=== PATIENT | female | born 1950 | race Caucasian/White ===

== ENCOUNTER 2025-02-28 19:50 | Emergency (ER) | payer OTHER, MEDICARE ==
[~2025-02-28] VITALS: Ht 167.6 cm; Wt 77.6 kg
[~2025-02-28 19:50] MED LIST: ATOR10TA70 PO; CALC-995 PO; IPRA4AER IH; LORA1TAB PO; MOME13HF9 IH; MONT-47 PO; MULT-933 PO; RANI-366 PO; RANI150T8 PO; SALM50DI2 IH; SUCR1ORA2 PO; VALS1TAB76 PO; VALS40TA2 PO
[2025-02-28 20:43] LABS: BASOPHILS % (AUTO) 0.4 % (0-1); EOSINOPHILS % (AUTO) 0.3 % (0-6); HEMATOCRIT 39.2 % (35.0-45.0); HEMOGLOBIN 13.3 g/dl (12.0-16.0); LYMPHOCYTES # (AUTO) 2.2 X10'3 (1.1-4.8); MEAN CORPUSCULAR HEMOGLOBIN 29.5 PG (27.0-31.0); MEAN CORPUSCULAR VOLUME 86.6 FL (78-98); MEAN PLATELET VOLUME 8.2 FL (7.4-10.4); MONOCYTES % (AUTO) 10.3 % (2-12); NEUTROPHILS # (AUTO) 6.8 X10'3 (1.8-7.7); PLATELET COUNT 203 X10'3 (140-440); RED BLOOD COUNT 4.52 X10'6 (4.20-5.60); RED CELL DISTRIBUTION WIDTH 13.3 % (11.5-14.5); WHITE BLOOD COUNT 10.1 X10'3 (4.5-11.0)
[2025-02-28 20:51] LABS: ALBUMIN 3.7 G/DL (3.4-5.0); ANION GAP 7 (8-16); BLOOD UREA NITROGEN 14 MG/DL (7-18); BUN/CREATININE RATIO 22.2 (10.0-20.0); CALCIUM 8.9 MG/DL (8.5-10.1); CHLORIDE 106 MMOL/L (99-107); CREATININE 0.63 MG/DL (0.40-0.90); GLUCOSE 113 MG/DL (70-104); POTASSIUM 3.9 MMOL/L (3.5-5.1); SODIUM 141 MMOL/L (135-145); TOTAL CARBON DIOXIDE 28.2 MMOL/L (24-32); eCRCL 73 ML/MIN; eGFR > 90 ML/MIN
[2025-02-28 20:54] LABS: APTT 24 SECONDS (22-32); PROTHROMBIN TIME 10.5 SECONDS (9.0-12.0)
[2025-02-28 21:04] LABS: BILIRUBIN,URINE NEGATIVE (Neg); CLARITY,URINE CLOUDY (Clear); COLOR,URINE YELLOW (Yellow); GLUCOSE, URINE NEGATIVE (Neg); KETONES,URINE NEGATIVE (Neg); LEUKOCYTE ESTERASE ,URINE NEGATIVE (Neg); NITRITES, URINE POSITIVE (Neg); OCCULT BLOOD,URINE NEGATIVE (Neg); PH,URINE 6.5 (4.8-8.0); PROTEIN,URINE NEGATIVE (Neg); UROBILINOGEN,URINE 0.2 E.U/dL (0.2-1.0)
[2025-02-28 21:18] LABS: UA COLLECTION TYPE URINAL
[2025-02-28 21:19] LABS: BACTERIA,URINE 4+ /HPF (Neg); RBC,URINE NONE SEEN /HPF (0-2); SQUAMOUS EPITHELIAL CELL,UR MODERATE /LPF (FEW)
[2025-02-28] MEDS ORDERED: levetiracetam inj 1,000 MG in normal saline 100ml IV soln 100 ML IV ONE (21:50)
[2025-02-28] MEDS: levetiracetam-NACL1000mg/100ml 100 ML IV ONE (22:07)
[2025-02-28] MEDS: labetalol 20mg/4ml (5mg/ml) syringe IV ONE (22:22)
[2025-02-28 22:27] VITALS: BP 152/102; PULSE 96; RESP 16; TEMP 97.8; O2SAT 98
== END 2025-02-28 22:32 | disposition hospice, inpatient (51) ==
LOC: ER 19:51
DX: S06.5XAA Traumatic subdural hemorrhage with loss of consciousness status unknown, initial encounter (principal); E78.00 Pure hypercholesterolemia, unspecified; I10 Essential (primary) hypertension; J45.909 Unspecified asthma, uncomplicated; W19.XXXA Unspecified fall, initial encounter; Z88.0 Allergy status to penicillin; Y93.89 Activity, other specified; Y92.89 Other specified places as the place of occurrence of the external cause; Y99.8 Other external cause status
CPT/HCPCS: 36415; 70450; 80048; 81001; 82948; 84145; 85025; 85610; 85730; 87077; 87088; 87186; 93005; 96374; 96375; 99291; 99292; J1953; J3490; 99285

== ENCOUNTER 2025-05-25 11:10 | Emergency (ER) | payer OTHER, MEDICARE ==
[~2025-05-25] VITALS: Ht 167.6 cm; Wt 77.3 kg
[2025-05-25 11:13] VITALS: TEMP 98.7
--- NOTE | 2025-05-25 11:32 | Physician Documentation ---
History of Present Illness General Stated Complaint: POSS STROKE SYMPTOMS Time Seen by MD: 11:26 Primary Medical Doctor: ZENAIDA History of Present Illness Initial Comments The patient is a 74-year-old female who was diagnosed with normal pressure hydrocephalus in September 2023. She had a shunt placed in July 2024 at [facility]. The shunt has been variously adjusted for drainage and recently set to 6., less drainage, about a month ago. Her treatment team at [facility] advised her that she might develop symptoms. She has been having trouble finding words and has reported slight difficulty or slurring of speech beginning three days ago. She has an appointment at [facility] on the of this month. She found them and they asked her to come to the hospital for a CT scan so they could review it. In February 2024 the patient was noted to have an old subdural hematoma on the left side. It was not clear when she developed it. Medication Reconciliation Allergies: Coded Allergies: Penicillins (Verified Allergy, Severe, RASH, 02/28/25) >5 years ago, rash, required treatment cephalexin (Verified Allergy, Severe, RASH, 05/25/25) ketorolac (Verified Allergy, Severe, exacerbates her asthma, 02/28/25) midazolam (Verified Allergy, Severe, SOB, 02/28/25) lactase (Verified Adverse Reaction, Severe, MIGRAINE MCKEON, 02/28/25) tetracycline (Verified Adverse Reaction, Severe, EMESIS, 02/28/25) Uncoded Allergies: HEPATITIS B VACCINE (Allergy, Severe, anaphylaxis, 05/16/17) Scheduled Atorvastatin Calcium (Atorvastatin Calcium), 1 TAB PO DAILY, (Reported) Calcium Carbonate (Calcium), 1 TAB PO DAILY, (Reported) Mometasone Furoate (Asmanex Hfa), 1-2 PUFFS IH BID, (Reported) Montelukast Sodium (Singulair), 1 TAB PO HS, (Reported) Multivitamin (One Daily Multivitamin), 1 TAB PO DAILY, (Reported) Ranitidine Hcl (Zantac), 150 MG PO DAILY Salmeterol Xinafoate* (Serevent Diskus*), 1 INH IH Q12H, (Reported) Sucralfate (Carafate), 10 ML PO ACHS Valsartan (Diovan), 80 MG PO HS, (Reported) Valsartan/Hydrochlorothiazide (Valsartan-Hctz 160-12.5 Mg Tab), 1 TAB PO QAM, (Reported) Scheduled PRN Ipratropium/Albuterol Sulfate (Combivent Respimat Inhal [place]), 2 PUFFS IH Q4H PRN for SOB or wheezing, (Reported) Lorazepam* (Ativan*), 1 TAB PO Q12H PRN for for anxiety/agitation, (Reported) Ranitidine HCl (Ranitidine HCl), 1 TAB PO DAILY PRN for acid reflux, (Reported) Past Medical History Past Medical History: High Cholesterol, Hypertension, Asthma, Chronic Pain Past Surgical History: noncontributory Alcohol Use: Rarely Drug Use: none Review of Systems ROS Constitutional: Denies chills, fatigue, fever, weight gain or weight loss. HEENT: Denies hearing loss, sinus pressure or visual changes. Respiratory: Denies cough, shortness of breath or wheezing. Cardiovascular: Denies chest pain, pain while walking (claudication), edema or palpitations. Gastrointestinal: Denies abdominal pain, blood in stool, constipation, diarrh ea, heartburn, loss of appetite, nausea or vomiting. Genitourinary: Denies painful urination (dysuria), excessive amount of urine (polyuria) or urinary frequency. Metabolic/Endocrine: Denies cold intolerance, heat intolerance, excessive thirst (polydipsia) or excessive hunger (polyphagia). Neurological: Trouble finding words and subjective slurring Psychiatric: Denies anxiety or depression. Integumentary: Denies breast discharge, breast lump, hives, mole change(s), rash or skin lesion. Musculoskeletal: Denies back pain, joint pain, joint swelling or neck pain. Hematologic: Denies easily bleeding, easily bruises, lymphedema or issues with blood clots. Immunologic: Denies food allergies or seasonal allergies. Physical Exam Physical Exam Physical Exam Physical Exam Vitals and nursing note reviewed. Constitutional: General: Patient is awake, alert, oriented x 4 in no acute distress and well appearing. Speech is clear and lucid. Appearance: Normal appearance. Patient is not ill-appearing, toxic-appearing or diaphoretic. HENT: Head: Normocephalic and atraumatic. Mouth/Throat: Mouth: Mucous membranes are moist. Pharynx: Oropharynx is clear. Eyes: General: No scleral icterus. Extraocular Movements: Extraocular movements intact. Pupils: Pupils are equal, round, and reactive to light. Cardiovascular: Rate and Rhythm: Normal rate and regular rhythm. Heart sounds: No murmur heard. Pulmonary: Effort: No respiratory distress. Breath sounds: No wheezing, rhonchi or rales. Abdominal: General: There is no distension. Palpations: There is no fluid wave, hepatomegaly or mass. Tenderness: There is no abdominal tenderness. There is no guarding. Musculoskeletal: General: No swelling or deformity. Skin: Coloration: Skin is not jaundiced. Findings: No erythema or rash. Neurological: Mental Status: Patient is alert. She does seem to have some trouble finding words, completing sentences. I am not able to detect any slurring of speech. GCS: E-4, V-5, M-6 Motor strength: 5/5 Sensory: Normal fabric sourcer: II - XII intact Equilibratory intact Progress Results/Orders Results/Orders Orders - SANDRA SOW MD Ct Head (05/25/25 11:27) General Nursing Order (05/25/25 ) CMP (05/25/25 12:34) Cbc/Diff (05/25/25 12:34) PTT (05/25/25 12:34) Pt Inr (05/25/25 12:34) Type And Screen (05/25/25 12:34) Completed Orders - SANDRA SOW MD Ct Head (05/25/25 11:27) Vital Signs 05/25/25 05/25/25 11:13 12:23 Temp 98.7 Pulse 92 Resp 14 B/P (MAP) 137/72 Pulse Ox 97 Laboratory Tests Test 05/25/25 12:55 CBC Comment Coagulation Comments Chemistry Comments Medical Decision Making Findings This patient with diagnosed normal pressure hydrocephalus has developed some symptoms three days ago which would put her out of a stroke windows and I have not declared a stroke alert. I am ordering a CT scan of the brain which I will have pushed for review at [facility]. CT scan of the brain reveals an acute or subacute left-sided subdural hematoma superimposed over the prior chronic subdural. It measures 15.2 cm in the AP dimension and 6.9 cm in the craniocaudal dimension, 1.1 cm thick. There is a 3 mm shift to the right. I am putting the patient up for transfer to a facility with neurosurgery. 1:00 p.m.: Patient accepted to [facility], ER to ER, spoke with the ER physician and neurosurgeon. Departure Disposition: 02 [facility]ORT TER[facility] Admitted to Inpatient Unit: to surgeon Admission Level of Care: Critcal Care Impression: Primary Impression: Subdural hematoma Referrals: NO PRIMARY CARE PROVIDER (PCP) Critical Care Note Critical Care Note Due to the high probability of neurological failure required my full attention for about 40 minutes while the patient was critical. I provided critical care services which included medication orders, frequent re-evaluations, response to treatment, renewing test results, and discussing case with various consultants. Unless specifically stated all procedures, tests, and medications were performed/interpreted under the direct supervision of the emergency department physician. Signature Scribe Signature: . Attestation: SANDRA RODRIGEZ MD May 25, 2025 11:32
--- NOTE | 2025-05-25 12:24 | RADIOLOGY REPORT ---
CLINICAL INFORMATION: 74 years old, Female; Symptomatic normal pressure hydrocephalus. TECHNIQUE: Axial imaging was obtained through the brain without contrast. Coronal and sagittal reform atted images were obtained, reviewed, and stored. Images were reviewed in brain and bone windows. Al l CT scans at this medical facility are performed using dose modulation techniques as appropriate to a performed exam including the following: Automated exposure control was utilized; adjustment of the MA and/or KV according to patient size; and use of iterative reconstruction technique. CTDIvol = 52.0 5 mGy DLP = 953.8 mGy-cm COMPARISON: CT CT HEAD on DOS: 02/28/25 FINDINGS: Acute or subacute on chronic subdural hemorrhage along the left lateral convexity extending up to 15.2 cm in AP dimension, 1.1 cm in thickness, 6.9 cm in craniocaudal dimension. Mild mass eff ect on the adjacent left frontal lobe sulci. There is up to 3 mm midline shift to the right. Right fr ontal approach FINAL CLEANER shunt catheter is stable in position, extending into the frontal horn of the right lateral ventricle, with the tip abutting the septum pellucidum. Ventricles appear mildly increased in size compared to the prior exam, but within the range of normal for age. Basal cisterns are patent. The calvarium is unremarkable, other than the small josefina hole in the right frontal calvarium for the FINAL CLEANER shunt catheter. Paranasal sinuses and mastoid air cells are clear. IMPRESSION: 1. Acute or subacute left on chronic subdural hemorrhage as described above. 2. There is up to 3 mm midline shift to the right. Critical findings Critical Result: Acute to subacute left subdural hemorrhage and mild midline shift to the right. Findings discussed with SANDRA GAYLE at 05/25/2025 02:20 PM CDT, and acknowledged receipt and understanding of the findings. ..
[2025-05-25 13:18] LABS: CREATININE 0.70 MG/DL (0.40-0.90); TOTAL CARBON DIOXIDE 29.0 MMOL/L (24-32); eCRCL 66 ML/MIN; eGFR 82 ML/MIN
[2025-05-25 13:21] LABS: MEAN PLATELET VOLUME 9.1 FL (7.4-10.4); RED CELL DISTRIBUTION WIDTH 12.9 % (11.5-14.5)
[2025-05-25 13:32] LABS: APTT 26 SECONDS (22-32); INR 1.0 INR
[2025-05-25 13:41] VITALS: BP 134/86; PULSE 86; RESP 16; O2SAT 96
== END 2025-05-25 13:45 | disposition short-term general hospital (02) ==
LOC: ER 11:11
DX: S06.5XAA Traumatic subdural hemorrhage with loss of consciousness status unknown, initial encounter (principal); E78.00 Pure hypercholesterolemia, unspecified; J45.909 Unspecified asthma, uncomplicated; I10 Essential (primary) hypertension; Z88.0 Allergy status to penicillin; Z88.1 Allergy status to other antibiotic agents; Z88.8 Allergy status to other drugs, medicaments and biological substances; Z79.899 Other long term (current) drug therapy; X58.XXXA Exposure to other specified factors, initial encounter; Y93.89 Activity, other specified; Y92.89 Other specified places as the place of occurrence of the external cause; Y99.8 Other external cause status
CPT/HCPCS: 36415; 70450; 80053; 85025; 85610; 85730; 86885; 86900; 86901; 99291

== ENCOUNTER 2025-05-28 16:23 | Emergency (ER) | payer OTHER, MEDICARE ==
[~2025-05-28] VITALS: Ht 167.6 cm; Wt 75.0 kg
--- NOTE | 2025-05-28 16:47 | Physician Documentation ---
History of Present Illness ~ Chief Complaint: Stroke Alert Stated Complaint: TROUBLE SPEAKING Time Seen by MD: 18:08 Primary Medical Doctor: ZENAIDA SEGURA 74-year-old female with a known history of abdominal pressure hydrocephalus, with a brain shunt, recent adjustment of the brain showed prior, recent admission and transferred to [facility] for stroke evaluation comes in for evaluation of right-sided facial droop, right upper extremity weakness, and worsening word-finding difficulties. Word-finding difficulties similar to prior stroke-like symptoms for which she has received evaluation over the weekend. Right-sided facial droop of the right upper extremity weakness a new. Last known well is difficult to establish but according to daughter probably around 9 last night. No palliating or aggravating factors. No headache. No trauma. History as above. Upon last presentation this past week she was transferred over to [facility] where they re-evaluated and her CT scans and did not feel that that has an additional bleed on top of her hematoma that has rather a finding secondary to increased pressure from her shunt. They decided not to adjust the shunt. Medication Reconciliation Allergies: Coded Allergies: Penicillins (Verified Allergy, Severe, RASH, 02/28/25) >5 years ago, rash, required treatment cephalexin (Verified Allergy, Severe, RASH, 05/25/25) ketorolac (Verified Allergy, Severe, exacerbates her asthma, 02/28/25) midazolam (Verified Allergy, Severe, SOB, 02/28/25) lactase (Verified Adverse Reaction, Severe, MIGRAINE MCKEON, 02/28/25) tetracycline (Verified Adverse Reaction, Severe, EMESIS, 02/28/25) Uncoded Allergies: HEPATITIS B VACCINE (Allergy, Severe, anaphylaxis, 05/16/17) Scheduled Atorvastatin Calcium (Atorvastatin Calcium), 1 TAB PO DAILY, (Reported) Calcium Carbonate (Calcium), 1 TAB PO DAILY, (Reported) Mometasone Furoate (Asmanex Hfa), 1-2 PUFFS IH BID, (Reported) Montelukast Sodium (Singulair), 1 TAB PO HS, (Reported) Multivitamin (One Daily Multivitamin), 1 TAB PO DAILY, (Reported) Ranitidine Hcl (Zantac), 150 MG PO DAILY Salmeterol Xinafoate* (Serevent Diskus*), 1 INH IH Q12H, (Reported) Sucralfate (Carafate), 10 ML PO ACHS Valsartan (Diovan), 80 MG PO HS, (Reported) Valsartan/Hydrochlorothiazide (Valsartan-Hctz 160-12.5 Mg Tab), 1 TAB PO QAM, (Reported) Scheduled PRN Ipratropium/Albuterol Sulfate (Combivent Respimat Inhal [place]), 2 PUFFS IH Q4H PRN for SOB or wheezing, (Reported) Lorazepam* (Ativan*), 1 TAB PO Q12H PRN for for anxiety/agitation, (Reported) Ranitidine HCl (Ranitidine HCl), 1 TAB PO DAILY PRN for acid reflux, (Reported) Past Medical History Past Medical History: High Cholesterol, Hypertension, Asthma, Chronic Pain Past Surgical History: noncontributory Alcohol Use: Rarely Drug Use: none Review of Systems ROS 10 point review of systems was performed and unless noted above in HPI is negative for acute process/complaint. Physical Exam Vital Signs: Temperature: 99.8, Source: Temporal, Heart Rate: 95, Respiratory Rate: 18, BP: 140/68, Pulse Oximetry: 98, Weight: 75.000 Oxygen Flow Rate: 0 General Appearance GENERAL: Awake, alert, oriented, GCS 15, no apparent distress, non-toxic appearing, answers questions, follows commands appropriately. HEENT: Atraumatic, normocephalic, pupils equal, extraocular muscles intact, sclerae anicteric, mucus membranes moist, oropharynx is clear, no stridor. NECK: supple, full active range of motion, trachea midline, no thyromegaly, no lymphadenopathy, no JVD. CARDIOVASCULAR: regular rate/rhythm, no murmurs/gallops/rubs, Pulses are 2+ in all extremities and symmetric. Capillary refill less than 2 seconds. PULMONARY: Nonlabored, good air movement ,no respiratory distress, speaking in full sentences, clear to auscultation bilaterally, no wheezing, no ronchi, no rales, no accessory muscle use. GASTROINTESTINAL: Soft, non-tender, non-distended, normal active bowel sounds, no organomegaly, no pulsatile masses, no CVA tenderness. NEUROLOGIC: Lucid with normal mental status. Obvious right-sided facial droop, the rest of the cranial nerves 2-12 with a normal limits with the preserved symmetric sensation bilateral face, normal shrug, normal extraocular range of motion. Right upper extremity strength is 4/5 in all muscle groups, left upper extremity 5/5 in all muscle groups, there is preserved symmetric sensation, no truncal ataxia, globally depressed DTRs, gait not tested. There obvious expressive language difficulty. No dysarthria MUSCULOSKELETAL: There is full range of motion of all extremities. There is no joint pain or joint swelling or joint erythema. There is no muscle pain or tenderness or swelling. EXTREMITIES: warm, well-perfused, no cyanosis, no clubbing, no edema, no acute deformities. Skin: warm, dry, no rashes or lesions, no jaundice, no petechiae orpurpura. No ecchymosis. PSYCHIATRIC: Normal affect, normal insight, normal concentration. Focused exam: [] Progress Results/Orders Results/Orders Vital Signs 05/28/25 05/28/25 05/28/25 05/28/25 16:27 18:40 18:44 20:00 Temp 99.8 Pulse 95 91 90 Resp 18 18 12 B/P (MAP) 140/68 112/60 (77) 95/66 (76) Pulse Ox 98 99 99 O2 Flow Rate 0 0 05/28/25 05/28/25 20:35 20:58 Temp 98.1 Pulse 90 89 Resp 12 12 B/P (MAP) 134/80 (98) 110/73 Pulse Ox 100 98 O2 Flow Rate 0 Laboratory Tests Test 05/28/25 16:35 05/28/25 16:40 Glucometer 102 White Blood Count 7.2 Red Blood Count 4.56 Hemoglobin 13.5 Hematocrit 39.8 Mean Corpuscular Volume 87.2 Mean Corpuscular Hemoglobin 29.7 Mean Corpuscular Hemoglobin Concent 34.0 Red Cell Distribution Width 13.0 Platelet Count 202 Mean Platelet Volume 8.9 Neutrophils (%) (Auto) 61.1 Lymphocytes (%) (Auto) 27.2 Monocytes (%) (Auto) 11.1 Eosinophils (%) (Auto) 0.3 Basophils (%) (Auto) 0.3 Neutrophils # (Auto) 4.4 Lymphocytes # (Auto) 2.0 Monocytes # (Auto) 0.8 Eosinophils # (Auto) 0.0 Basophils # (Auto) 0.0 CBC Comment Prothrombin Time 10.6 INR International Normalized Ratio 1.0 Activated Partial Thromboplast Time 25 Coagulation Comments Sodium Level 137 Potassium Level 3.6 Chloride Level 100 Carbon Dioxide Level 25.6 Anion Gap 11 Blood Urea Nitrogen 15 Creatinine 0.80 Estimated GFR/1.73 m2 70 BUN/Creatinine Ratio 18.8 Glucose Level 99 Calcium Level 9.2 Total Bilirubin 1.0 Aspartate Amino Transf (AST/SGOT) 12 Alanine Aminotransferase (ALT/SGPT) 21 Alkaline Phosphatase 69 Total Protein 7.4 Albumin 3.8 Globulin 3.6 Albumin/Globulin Ratio 1.1 Chemistry Comments Medical Decision Making Findings Differential includes but not limited to TIA, CVA, partial seizure, complex migraine, hypoglycemia, alcohol intoxication, drug toxidrome, NPH complications/shunt malfunction Received care of patient. Spoke with tele neurology who recommends transfer to neurosurgical capable facility. Possible seizures causing her symptoms. We will require formal neurologic evaluation. No TNK indicated as patient is outside the window Departure Disposition: 51 HOSPICE/MEDICAL FACILITY Impression: Primary Impression: Possible stroke Additional Impression: Possible seizure Condition: Guarded Referrals: NO PRIMARY CARE PROVIDER (PCP) Critical Care Note Total Time (mins): 45 Critical Care Note The very real possibility of a deterioration of this patient's condition required the highest level of my preparedness for sudden, emergent intervention. I provided critical care services, which included medication orders, frequent reevaluations of the patient's condition and response to treatment, ordering and reviewing test results, and discussing the case with various consultants. Excludes time spent performing separately billable procedures. The critical care time associated with the care of the patient was 45 minutes not counting procedures Signature Scribe Signature: No scribe Attestation: The note accurately reflects work and decisions made by me.Brady Laughlin MD 05/28/25 20:28 This note accurately reflects clinical decisions, work performed by myself, Garrett Euceda DO 05/28/2025 @ 1652 GARRETT EUCEDA DO May 28, 2025 16:47 BRADY LAUGHLIN MD May 28, 2025 18:22
--- NOTE | 2025-05-28 17:04 | ELECTROCARDIOGRAPH REPORT ---
[facility] Test Date: 2025-05-28 Test Time: 17:03:44 Pat Name: BLANCO SANZ Department: [facility]-ER Patient ID: [facility]-[id number] Room: Gender: F Dip Painter: : 1950 Requested By: KELSEA CHAPA Order Number: [id number] Reading MD: Measurements Intervals [place] Rate: 91 P: 21 NH: 141 QRS: -10 QRSD: 90 T: 41 QT: 357 QTc: 440 Interpretive Statements Ventricular-paced complexes No further rhythm analysis attempted due to paced rhythm Abnormal R-wave progression, early transition Please click the below link to view image of tracing.
--- NOTE | 2025-05-28 17:09 | RADIOLOGY REPORT ---
CT CT STROKE ALERT Indication: Stroke Alert EXAM DATE: 05/28/2025 04:44 PM COMPARISON: CT CT HEAD on DOS: 05/25/25, CT CT HEAD on DOS: 02/28/25 TECHNIQUE: CT of the head without intravenous contrast. RADIATION DOSE: CTDIvol: 51.5 mGy, DLP: 972 mGy*cm FINDINGS: Redemonstration of hemispheric subdural hematoma with acute/subacutem on chronic components measuring up to 11 mm in thickness, similar to the previous examination. Right parietal subacute / chronic subdural hematoma measuring 7 mm in thickness, grossly unchanged. Right frontal subacute / chronic subdural hematoma measuring 6 mm in thickness, unchanged. [id number] periventricular and subcortical white matter chronic microvascular ischemic changes. Right frontal approach ventriculostomy catheter terminating near the frontal horn left lateral ventri gonzalo. [id number]-[id number] midline shift of 5 mm, similar to previous examination. Ventricles normal in size. Cisterns patent. Mastoids well pneumatized. Paranasal sinuses are well pneumatized. IMPRESSION: Left holohemispheric acute/subacute on chronic subdural hematoma measuring 11 mm in thickness, unchan ged. 5 mm [id number] midline shift, unchanged. Right frontal and right parietal subacute/chronic subdural hematomas, unchanged. Right frontal approach ventriculostomy catheter. Other findings as described. Subdural hematomas Critical Result: Stroke Alert Findings discussed with , Dr Euceda at 05/28/2025 07:05 PM, and acknowledged receipt and understand ing of the findings. ..
--- NOTE | 2025-05-28 17:18 | RADIOLOGY REPORT ---
CHEST RADIOGRAPH Indication: Stroke Alert Technique: Single frontal view of the chest was obtained COMPARISON: Right central venous catheter overlies the superior vena cava. FINDINGS: Lines and Tubes: Right CLAMP OPERATOR shunt catheter tubing. Lungs: Clear Pleura: No effusion. No pneumothorax. Cardiomediastinal contours: Unremarkable Bones: Unremarkable IMPRESSION: No acute disease.
[2025-05-28 17:19] LABS: MEAN PLATELET VOLUME 8.9 FL (7.4-10.4); RED CELL DISTRIBUTION WIDTH 13.0 % (11.5-14.5)
[2025-05-28 17:30] LABS: APTT 25 SECONDS (22-32); INR 1.0 INR
[2025-05-28 17:31] LABS: CREATININE 0.80 MG/DL (0.40-0.90); TOTAL CARBON DIOXIDE 25.6 MMOL/L (24-32); eCRCL 58 ML/MIN; eGFR 70 ML/MIN
--- NOTE | 2025-05-28 18:18 | RADIOLOGY REPORT ---
EXAM: CT CTA NECK/HEAD DATE OF SERVICE: 05/28/2025 05:32 PM ORDERING PHYSICIAN: KELSEA CHAPA REASON FOR EXAM: R face/RUE weakness TECHNIQUE: CTA of the brain and neck was performed after the administration of contrast . Axial imag es of the head and neck are obtained. Coronal and sagittal images were then reformatted for review. M IP reformats were obtained and reviewed. COMPARISON: CT head from today FINDINGS: FINDINGS: The right common carotid artery demonstrates no high-grade stenosis. Right internal carotid artery demonstrates no high-grade stenosis. Right middle cerebral artery demonstrates no high-grade stenosis. The right anterior cerebral artery demonstrates no high-grade stenosis. The left common carotid artery demonstrates no high-grade stenosis. There is mild calcification of th e carotid bulb. Left internal carotid artery demonstrates no high-grade stenosis. The left middle cerebral artery demonstrates no high-grade stenosis. The left anterior cerebral artery demonstrates no high-grade stenosis. The right vertebral artery demonstrates no high-grade stenosis. The left vertebral artery demonstrates no high-grade stenosis. Basilar artery small in caliber. origin of the bilateral posterior cerebral arteries. The bilateral posterior cerebral arteries demonstrate no high-grade stenosis. Bilateral subdural hematomas as described on concurrent CT head. There is a left thyroid nodule measuring 1.5 cm. Right ventriculostomy catheter. Moderate to advanced cervical degenerative disc disease. 3 mm anterolisthesis of C4 upon C5. 7 mm left upper lobe pulmonary nodule. IMPRESSION: No large vessel high-grade stenosis. Bilateral subdural hematomas as described on concurrent CT head. 5 mm ghkw-[id number] midline shift. 1.5 cm left thyroid nodule. Recommend thyroid ultrasound in the nonemergent setting. A 7 mm left upper lobe pulmonary nodule. Recommend follow-up per Fleischner society criteria. Other findings as described.
--- NOTE | 2025-05-28 19:54 | [facility] CONSULT REPORT ---
[facility] Procedure Note [facility] Procedure Note Consult [facility] Note # Demographics Consult Type: Acute Stroke Level 2 (4.5-24 hrs) Patient Location: Emergency Room First Name: Davide Last Name: Chrystal Date of : 1950 Age: 74 Gender: Female Facility: [facility] Time of Initial Page (): 05/28/2025 18:37 Time of Return Call (): 05/28/2025 18:39 # HPI History: 74 y/o F with a PMHx of shunt, hematoma stuttering speech and RUE weakness and R facial droop. Her daughter states that she has had some difficulty with speech since Tuesday. She was admitted over night and discharged on Tuesday. Last night, she had increasing difficulty talking and then this morning she was doing better but when her daughter got back home from work she had R handed weakness and trouble difficulty. Over the weekend, she had some R hand weakness and difficulty gripping a fork. Last Known Normal: 9 AM yesterday # Scores Time of exam and NIHSS (): 05/28/2025 19:13 Level of Consciousness 1a: [0] = Alert; keenly responsive LOC Questions 1b: [2] = Answers neither correctly LOC Commands 1c: [0] = Performs both tasks correctly Best Gaze 2: [0] = Normal Visual 3: [0] = No visual loss Facial Palsy 4: [1] = Minor paralysis Motor Arm Left 5a: [0] = No drift Motor Arm Right 5b: [1] = Drift Motor Leg Left 6a: [0] = No drift Motor Leg Right 6b: [0] = No drift Limb Ataxia 7: [0] = Absent Sensory 8: [0] = Normal Best Language 9: [1] = Bfff-hs-kfiosqhe aphasia Dysarthria 10: [1] = Sner-vx-ggrntvnx dysarthria Extinction and Inattention 11: [0] = No abnormality NIHSS Total: 6 # Exam SBP: 112 DBP: 60 # Data Head CT: - hemorrhage L holohemispheric acute/subacute on chronic SDH measuring 11mm in thickness, 5mm L to R midline shift, R frontal and R parietal subacute/chronic SDH, R frontal ventriculostomy, CTA Head: - no large vessel occlusion - per radiologist read CTA Neck: - patent vessels - per radiologist read # Assessment Impression: - 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 seizure secondary to SDH vs. new ischemic stroke # Plan Thrombolytic/Intervention: NOT IV Thrombolysis or IA Intervention candidate Thrombolytic Exclusion (< 3 hour window): - ICH Thrombolytic Exclusion: > 4.5 hours Intraarterial Exclusion: - ICH Labs: - CBC - comprehensive metabolic panel - ua - TSH - troponin Imaging: (urgency: routine): - MRI Brain without contrast Diagnostic Test: - EEG Other: - If patient has any neurological deterioration please call me back immediately - telemetry monitoring - consult neurosurgery - I have discussed my recommendations with the referring provider - seizure precautions # Logistics Attestation of consult completion: The patient is located at: [facility]. Facility staff participated in the visit. I performed this telemedicine visit from my offsite office utilizing interactive 2 way audio and visual telecommunication technology. Total time spent in telemedicine encounter: I spent 30 minutes reviewing clinical data and/or imaging, obtaining history, examining the patient, communicating with the onsite care team, and in preparation of this report. # Demographics First Name: Davide Last Name: Chrystal Facility: [facility] Electronically signed at 05/28/2025 19:52 ([place] Time) by Cathy Andrews MD Neuro Consult Order placed for: Yes CATHY ANDREWS MD May 28, 2025 19:53
[2025-05-28 20:58] VITALS: BP 110/73; PULSE 89; RESP 12; TEMP 98.1; O2SAT 98
== END 2025-05-28 21:30 | disposition hospice, inpatient (51) ==
LOC: ER 16:24
DX: R29.810 Facial weakness (principal); R06.02 Shortness of breath; E78.00 Pure hypercholesterolemia, unspecified; I10 Essential (primary) hypertension; J45.909 Unspecified asthma, uncomplicated; Z88.0 Allergy status to penicillin; Z79.899 Other long term (current) drug therapy
CPT/HCPCS: 36415; 70496; 70498; 71045; 80053; 82948; 85025; 85610; 85730; 93005; 99285; Q9967